=== PATIENT | female | born 1960 ===

== ENCOUNTER 2016-08-26 18:05 | Outpatient (CLI) | payer OTHER, BC ==
--- NOTE | 2016-08-26 19:08 | DIAGNOSTIC IMAGING REPORT ---
PROCEDURE: CT ABDOMEN/PELVIS W/O CONTRAST INDICATION: LEFT FLANK PAIN TECHNIQUE: Axial CT images were obtained through the abdomen and pelvis without IV contrast. Coronal and sagittal reformations were created. COMPARISON: None. FINDINGS: Clear lung bases. Normal size heart. No hiatal hernia. Mild diffuse hepatic hypodensity. 2 mm calcification dependently within an otherwise normal-appearing gallbladder. Surgical robin of appendectomy in the lateral right abdomen. No intrarenal calcifications or hydronephrosis. Proximal and mid ureters are of normal caliber without calcification. The unenhanced appearance of the liver, gallbladder, adrenal glands, kidneys, pancreas and spleen is otherwise normal. The abdominal aorta is normal in its course and caliber. There are no suspicious calcifications, retroperitoneal adenopathy or masses. The stomach, upper bowel loops, and mesentery appears normal. Intact anterior abdominal wall. No free fluid, or inflammation. The distal ureters are nondilated. Innumerable phleboliths are present caudally in the pelvis. No definite ureteral calcification. The urinary bladder is diffusely decompressed without calcification visible. There is a 4.9 cm mass exophytically arising from the right aspect of the uterus, likely a fibroid. Ovarian tissue appears normal. The unenhanced appearance of the pelvic vessels, and pelvic bowel loops is normal. No free fluid, or mass. Intact osseous structures. IMPRESSION: 1. No evidence of urinary calcification or obstructive uropathy. 2. Cholelithiasis without CT evidence of cholecystitis. 3. Post appendectomy. 4. Mild diffuse hepatic steatosis. 5. 4.9 cm uterine fibroid. 6. Findings called to [facility]. All CT scans at this facility use dose modulation, iterative reconstruction, and/or weight-based dosing when appropriate to reduce radiation dose to as low as reasonably achievable.
== END 2016-08-26 23:00 ==
LOC: CT SRH 18:05
DX: K80.20 Calculus of gallbladder without cholecystitis without obstruction (principal); K76.0 Fatty (change of) liver, not elsewhere classified